=== PATIENT | male | born 1985 | race Caucasian/White ===

== ENCOUNTER 2022-02-21 11:51 | Emergency (ER) | payer SELFPAY ==
[2022-02-21 11:54] VITALS: BP 128/97; PULSE 76; RESP 16; TEMP 37.1; O2SAT 100
--- NOTE | 2022-02-21 12:08 | ED.WOUNDLAC ---
HPI - Wound/Laceration General Chief Complaint: Wound/Laceration Stated Complaint: finger laceration Time Seen by Provider: 02/21/22 12:04 History of Present Illness HPI narrative: Patient is a 26-year-old male who presents ER with laceration to his right fifth digit. It is over the proximal third of the finger ulnar aspect. He was using a mandolin to cut carrots with cut his finger. It occurred approximately 1.5 hours ago. His tetanus is not up-to-date. No numbness or tingling. No limitation range of motion. Related Data Home Medications Medication Instructions Recorded Confirmed No Home Medications 02/21/22 02/21/22 Allergies Allergy/AdvReac Type Severity Reaction Status Date / Time amoxicillin Allergy Unknown Rash Verified 02/21/22 12:02 clavulanic acid Allergy Unknown Rash Verified 02/21/22 12:02 diphenhydramine Allergy Unknown Rash Verified 02/21/22 12:02 Review of Systems Musculoskeletal: Musculoskeletal: Denies arthralgias and Denies joint swelling Integumentary/Breasts: Skin/Breast: Denies erythema and Denies rash Comments: Finger laceration/avulsion Neurologic: Denies focal weakness and Denies numbness PMFSH Past Medical History Medical History (Updated 02/21/22 @ 12:42 by Tavo Sebastian MD) Pneumothorax Surgical History Surgical History (Updated 02/21/22 @ 12:13 by Tavo Sebastian MD) S/P partial lobectomy of lung Social History Social History Smoking status: Former smoker Second hand tobacco smoke exposure: No Smoking end date: 03/31/11 Alcohol intake: never Exam Narrative: GENERAL: Well-appearing, well-nourished, and in no acute distress. HEAD: Normocephalic, atraumatic. CHEST: Clear to auscultation. No respiratory distress. HEART: Regular rate and rhythm. Normal peripheral pulses. EXTREMITIES: Normal range of motion. No edema. SKIN: Warm, dry. Right fifth digit with laceration over the proximal third of the finger ulnar aspect that is approximately 2.4 cm in total length. It is a flap that has a stalk. NEURO: Alert and oriented x3. The stalk of the flap has decreased sharp touch sensation but the rest of the finger has intact sensation. PSYCH: Normal mood and affect. Course Course Emergency Course: Tetanus updated. Wound repaired. Discharge home. Vital Signs Vital signs: Vital Signs Temperature 98.8 F 02/21/22 11:54 Pulse Rate 76 02/21/22 11:54 Respiratory Rate 16 02/21/22 11:54 Blood Pressure 128/97 H 02/21/22 11:54 Pulse Oximetry 100 02/21/22 11:54 Oxygen Delivery Room Air 02/21/22 11:54 Temperature 98.8 F 02/21/22 11:54 Pulse Rate 76 02/21/22 11:54 Respiratory Rate 16 02/21/22 11:54 Blood Pressure 128/97 H 02/21/22 11:54 Pulse Oximetry 100 02/21/22 11:54 Oxygen Delivery Room Air 02/21/22 11:54 Procedures Laceration Laceration 1: Date: 02/21/22 Time: 12:50 Site: other (finger) Side (If applicable): right Size (cm): 2.4 Description: flap and clean Depth: simple, single layer Local Anesthetic: lidocaine 1% Amount of anesthesia used (mL): 1.5 Pre-repair: irrigated extensively ====== Skin Level ====== Skin layer closed with: nylon Size (cm): 5-0 Number of sutures: 5 Technique: simple, interrupted ====== Subcutaneous Layer ====== ====== Muscle Layer ====== ====== Tendon Layer ====== Discharge Plan Discharge Clinical Impression: Finger laceration Patient Disposition: Home, Self-Care Condition: Stable Instructions: Care For Your Stitches (ED), Laceration (ED) Additional Instructions: Your sutures will need to be removed on 03/07/2022. Return to the ER if your finger is red and hot, the wound is draining pus, you have additional concerns. Your tetanus shot was updated today. Prescriptions: No Action No Home Medications Follow-up/Referrals: Tevin
[2022-02-21] MEDS: TETANUS,DIPHTHERIA,AC PERTUSSIS ADULT (0.5 ML) BOOSTRIX IM (12:33)
== END 2022-02-21 13:13 | disposition home or self-care (01) ==
PROVIDERS: Emergency Provider Emergency Medicine
DX: S61.216A Laceration without foreign body of right little finger without damage to nail, initial encounter (principal); Z23 Encounter for immunization; Z90.2 Acquired absence of lung [part of]; Z87.891 Personal history of nicotine dependence; Y93.G1 Activity, food preparation and clean up; W27.4XXA Contact with kitchen utensil, initial encounter
CPT/HCPCS: 12001; 90471; 90715; 99282

== ENCOUNTER 2023-10-17 09:24 | Emergency (ER) | payer OTHER, SELFPAY ==
--- NOTE | ~2023-10-17 | CT_ITS ---
CT of the Abdomen and Pelvis: Indication: Abdominal pain Technique: 2.5 mm axial scans were obtained through the abdomen and pelvis following intravenous adm inistration of 100 cc of Omnipaque 350. Dose reduction technique was used on this scan by utilizing a utomated exposure control and iterative reconstruction technique. The dose-length product (DLP) was 5 93.55 mGy-cm. Findings: Scans through the lung bases are unremarkable. The liver, spleen, pancreas, gallbladder, adrenals and kidneys are within normal limits. No evidence of aortic aneurysm. No lymphadenopathy. No bowel obstruction or bowel wall thickening. There is no evidence to suggest acute appendicitis. Th ere is minimal haziness in the central mesentery with shotty lymph nodes. Images through the pelvis were performed. Urinary bladder unremarkable. No pelvic mass seen. No ascit es. Impression: Mild mesenteric panniculitis. Reviewed, dictated and finalized at [facility]. Impression: Mild mesenteric panniculitis.
[2023-10-17 09:33] VITALS: BP 147/95; PULSE 90; RESP 19; TEMP 36.4; O2SAT 100
[2023-10-17 10:19] LABS: Basophils Absolute Auto 0.1 K/mm3 (0.0-0.1); Basophils Percent Auto 1.2 % (0.2-1.2); Eosinophils Percent Auto 16.9 % (0-4.4); Hematocrit 50.6 % (42.0-52.0); Hemoglobin 17.7 g/dL (14.0-18.0); Immature Granulocyte Absolute 0.06 K/mm3 (0.00-0.031); Immature Granulocyte Percent A 0.5 % (0-0.5); Lymphocytes Absolute Auto 2.31 K/mm3 (0.9-3.2); Lymphocytes Percent Auto 19.6 % (18.3-44.2); Mean Corpuscular Hemoglobin 31.8 pg (26-34); Mean Platelet Volume 11.2 fl (7.4-10.4); Monocytes Absolute Auto 0.7 K/mm3 (0.1-0.6); Monocytes Percent Auto 6.2 % (2.6-8.5); Neutrophils Absolute Auto 6.6 K/mm3 (1.3-6.7); Neutrophils Percent Auto 55.6 % (45.5-73.1); Platelet Count Result 202 k/mm3 (150-375); Red Blood Count 5.56 M/mm3 (4.6-6.20); Red Cell Distribution Width 12.4 % (11.5-14.5); White Blood Count 11.8 K/mm3 (4.5-10.0)
--- NOTE | 2023-10-17 10:20 | ED.GENADULT ---
HPI - General Adult General Chief complaint: Abdominal Pain Stated complaint: abdominal pain Time Seen by Provider: 10/17/23 09:55 History of Present Illness HPI narrative: 38-year-old male medical problems presents to the emergency room for evaluation of right-sided abdominal pain and diarrhea for 2 weeks. Patient states prior to him having diarrhea, he said he ate a half a check and that was not thoroughly. Reports 4-5 episodes of liquid stool daily. Denies any known blood in the stool. Denies any nausea vomiting. Denies fevers. States has taken Pepto-Bismol couple of occasions with no improvement of the symptoms. Related Data Allergies Allergy/AdvReac Type Severity Reaction Status Date / Time amoxicillin Allergy Unknown Rash Verified 10/17/23 09:46 clavulanic acid Allergy Unknown Rash Verified 10/17/23 09:46 diphenhydramine Allergy Unknown Rash Verified 10/17/23 09:46 Review of Systems Review of Systems: ROS unremarkable except for noted in HPI PMFSH Past Medical History Medical History Pneumothorax Surgical History Surgical History S/P partial lobectomy of lung Social History Social History Smoking status: Former smoker Second hand tobacco smoke exposure: No Smoking end date: 03/31/11 Alcohol intake: never Exam Narrative: GENERAL: Well-appearing, well-nourished, no physical limitations, and in no acute distress. HEAD: Normocephalic, atraumatic. EYES: Conjunctivae normal, PERRLA and EOMI. CHEST: Clear to auscultation. No respiratory distress. No wheezes rales or rhonchi. HEART: Regular rate and rhythm. No murmur heard. Normal peripheral pulses. ABDOMEN: Soft, right-sided tenderness, nondistended, normal active bowel sounds. BACK: No CVA tenderness EXTREMITIES: Normal range of motion. No edema. No clubbing or cyanosis SKIN: Warm, dry, no rash. No noted wounds NEURO: No focal deficits. Alert and oriented x3. MAEW. CN's II-XI intact bilaterally, normal gait PSYCH: Cooperative. Normal mood and affect. Course Vital Signs Vital signs: Vital Signs Temperature 36.4 C L 10/17/23 09:33 Pulse Rate 90 10/17/23 09:33 Respiratory Rate 19 10/17/23 09:33 Blood Pressure 147/95 H 10/17/23 09:33 Pulse Oximetry 100 10/17/23 09:33 Oxygen Delivery Room Air 10/17/23 09:33 Temperature 36.4 C L 10/17/23 09:33 Pulse Rate 88 10/17/23 10:32 Respiratory Rate 17 10/17/23 10:32 Blood Pressure 126/86 10/17/23 10:32 Pulse Oximetry 97 10/17/23 10:32 Oxygen Delivery Room Air 10/17/23 09:33 Medical Decision Making MDM Narrative Medical decision making narrative: 38-year-old male no medical problems presenting with the multiple episodes of liquid diarrhea for 2 weeks. Denies fevers, abdominal pain. Patient is nontoxic on exam. Lab work is largely unremarkable CT scan showed evidence of panniculitis. Consult with Dr. Juárez, he recommends obtaining stool cultures and treating based on results. Vital Signs Vital Signs: Vital Signs Temperature 36.4 C L 10/17/23 09:33 Pulse Rate 90 10/17/23 09:33 Respiratory Rate 19 10/17/23 09:33 Blood Pressure 147/95 H 10/17/23 09:33 Pulse Oximetry 100 10/17/23 09:33 Oxygen Delivery Room Air 10/17/23 09:33 Temperature 36.4 C L 10/17/23 09:33 Pulse Rate 88 10/17/23 10:32 Respiratory Rate 17 10/17/23 10:32 Blood Pressure 126/86 10/17/23 10:32 Pulse Oximetry 97 10/17/23 10:32 Oxygen Delivery Room Air 10/17/23 09:33 Lab Data 10/17/23 10:05 10/17/23 10:05 Labs: Lab Results 10/17/23 Range/Units 10:05 WBC 11.8 H (4.5-10.0) K/mm3 RBC 5.56 (4.6-6.20) M/mm3 Hgb 17.7 (14.0-18.0) g/dL Hct 50.6 (42.0-52.0) % MCV 91.0 (80-100) fl MCH 31.8 (26-34) pg MCHC 35.0
[2023-10-17 10:27] LABS: Alanine Aminotransferase 23 U/L (6-50); Albumin Level 4.6 g/dL (3.5-5.1); Alkaline Phosphatase 86 U/L (38-126); Anion Gap 9 mmol/L (4-12); Appearance Urine Clear (Clear); Aspartate Amino Transferase 20 U/L (17-59); Bilirubin Urine Negative (Negative); Blood Urea Nitrogen 14 mg/dL (9-20); Blood Urine Negative (Negative); Calcium 9.3 mg/dL (8.4-10.2); Carbon Dioxide 28 mmol/L (22-30); Chloride 100 mmol/L (98-107); Color Urine Yellow (Yellow); Estimated CRCL calculation 83 ml/min; Estimated Glomerular Filt Rate > 60; Glucose 168 mg/dL (65-110); Glucose Urine UA 1+ mg/dL (Negative); Ketones Urine Negative (Negative); Leukocyte Esterase Ur Negative LEU/UL (Negative); Lipase 143 U/L (23-300); Nitrate Urine Negative (Negative); Protein Urine Negative (Negative); Sodium 137 mmol/L (137-145)
[2023-10-17] MEDS: SODIUM CHLORIDE 0.9% IV 1,000 ML 999 ML IV CONT (10:27)
[2023-10-17 10:32] VITALS: BP 126/86; PULSE 88; RESP 17; O2SAT 97
[2023-10-17 10:48] LABS: Add Urine Microscopic? NO
[2023-10-17 12:22] VITALS: BP 132/87; PULSE 84; RESP 15; O2SAT 99
== END 2023-10-17 12:28 | disposition home or self-care (01) ==
PROVIDERS: Student in an Organized Health Care Education/Training Program; Emergency Provider Nurse Practitioner Family
DX: K65.4 Sclerosing mesenteritis (principal); Z87.891 Personal history of nicotine dependence; Z90.2 Acquired absence of lung [part of]
CPT/HCPCS: 36415; 74177; 80053; 81003; 83690; 85025; 96360; 99284; J7030; Q9967

== ENCOUNTER 2023-10-18 07:42 | Outpatient (CLI) | payer OTHER, SELFPAY ==
[2023-10-18 10:30] LABS: Toxigenic C. Diff NEGATIVE (NEGATIVE)
== END 2023-10-18 07:43 | disposition home or self-care (01) ==
PROVIDERS: Visit Provider Nurse Practitioner Family
DX: R19.7 Diarrhea, unspecified (principal)
CPT/HCPCS: 87045; 87177; 87209; 87427; 87449; 87493

== ENCOUNTER 2024-04-03 05:24 | Emergency (ER) | payer OTHER, SELFPAY ==
[2024-04-03 05:26] VITALS: BP 145/92; PULSE 106; RESP 16; TEMP 36.9; O2SAT 98
--- NOTE | 2024-04-03 05:30 | ECG_ITS ---
Test Date: 2024-04-03 05:40:00 Measurements Intervals [place] Rate: 114 P: 65 [place]: 134 QRS: 89 QRSD: 96 T: 56 QT: 326 QTc: 449 Interpretive Statements SINUS TACHYCARDIA POSSIBLE LEFT ATRIAL ENLARGEMENT [-0.1mV P WAVE IN V1/V2] No previous ECG available for comparison Electronically Signed On 04-06-2024 17:55:31 SPORTS PHOTOGRAPHER by Lisa Aguilar M.D.
--- OUTSIDE RECORDS SUMMARY | 2024-04-10 05:46 | XMS_ITS | Encounter Summary ---
Author Organization [facility] Address [address] [place] [address] Care Team Providers Care Tone Cabinet Assembler Name Role Phone Unavailable Primary Care Provider Unavailabl e Encounter Details Date Type Department Care Team (Late st Contact Info) Description 03/02/2020 3:00 PM VEST FINISHER Rapid Evaluation [place] [facility] Community Testing [address] [id number] Social History Tobacco Use Types Packs/Day Years Used Date Smoking Tobacco: Never Assessed Sex and Gender Information Value Date Recorded Sex Assigned at Not on file Legal Sex Male 2:38 PM VEST FINISHER Gender Identity Not on file Sexual Orientation Not on file documented as of this encounter Plan of Treatment Not on file documented as of this encounter Visit Diagnoses Not on filedocumented in this encounter
--- OUTSIDE RECORDS SUMMARY | 2024-04-10 05:46 | XMS_ITS | Clinical Summary ---
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 TEST CLERK Gender Identity Not on file Sexual Orientation Not on file Plan of Treatment Health Maintenance Due Date Last Done Comments Hepatitis C Virus (HCV) Screening 1986 TdaP Immunization 1986 Hepatitis B Immunization (1 of 3 - 19+ 3-dose series) 2005 Influenza Immunization (#1) 2023 SARS-COV-2 Immunization ( - 2023- season) 2023 Respiratory Syncytial Virus (RSV) Immunization (Adult) (1 - 1-dose 75+ series) 2061 Meningococcal Immunization (ACWY) Aged Out No longer eligible based on patient's age to complete this topic Pneumococcal Immunization Combined Aged Out No longer eligible based on patient's age to complete this topic Rotavirus Immunization Aged Out No lo nger eligible based on patient's age to complete this topic
--- OUTSIDE RECORDS SUMMARY | 2024-04-10 05:46 | XMS_ITS | Referral Summary ---
Author Organization [facility] Address [facility] [place] [address] Care Team Providers Care Bioinformatics Developer Name Role Phone Trevin Smith MD Primary Care Provider [phone] Source Comments [facility],non-owned Affiliates and Associated Physician Practices is amultiple site organization consisting of ambulatory clinics and hospital sitesin [place], [place], [place] and [place]. This disclosure is being madepursuant to the Care Everywhere program and may not contain all information available regarding this patient. Last updated 17.[facility] Allergies Active Allergy Reactions Criticality Noted Date Comments Augmentin Urticaria Medium 06/15/2017 Medications Be aware that medications may not be up to date on this document. Always verify current medications with the patient. No known medications Social History Tobacco Use Types Packs/Day Years Used Date Smoking Tobacco: Former Cigarettes Q uit: 2012 Smokeless Tobacco: Never Sex and Gender Information Value Date Recorded Sex Assigned at Not on file Gender Identity Not on file Sexual Orientation Not on file Last Filed Vital Signs Vital Sign Reading Time Taken Comments Blood Pressure 120/84 06/15/2017 2:26 PM CDT Pulse 79 06/15/2017 2:26 PM CDT Temperature 36.7 ??C (98.1 ??F) 06/15/2017 2:26 PM CD T Respiratory Rate 16 06/15/2017 2:26 PM CDT Oxygen Saturation 98% 06/15/2017 2:26 PM CDT Inhaled Oxygen Concentration - - Weight 83.9 kg (185 lb) 06/15/2017 2:26 PM CDT Height 182.9 cm (6') 06/15/2017 2:26 PM CDT Body Mass Index 25.09 06/15/2017 2:26 PM CDT Plan of Treatment Not on file Care Teams Bioinformatics Developer Relationship Specialty Start Date End Date Trevin Smith MD [address] [place] [address] PCP - General Family Medicine 06/15/17
--- OUTSIDE RECORDS SUMMARY | 2024-04-10 05:46 | XMS_ITS | Clinical Summary ---
Author Organization [facility] Address [facility] [facility] [place] [address] Care Team Providers Care Hydraulic Technician Name Role Phone Trevin Smith MD Primary Care Provider [phone] Source Comments [facility],non-owned Affiliates and Associated Physician Practices is amultiple site organization consisting of ambulatory clinics and hospital sitesin [place], [place], [place] and [place]. This disclosure is being madepursuant to the Care Everywhere program and may not contain all information available regarding this patient. Last updated 17.[facility] Allergies Active Allergy Reactions Criticality Noted Date [...] 06/15/2017 2:26 PM CDT Plan of Treatment Health Maintenance Due Date Last Done Comments HIV SCREENING 2001 HEPATITIS C SCREENING 05/23/2004 DTAP/TDAP/TD VACCINES (1 - Tdap) 2005 HEPATITIS B VACCINE (1 of 3 - 19+ 3-dose series) 2005 DEPRESSION SCREENING 03/31/2023 COVID-19 VACCINE (1 - 2023-2 5 season) 2023 INFLUENZA VACCINE (#1) 2023 ZOSTER VACCINE (1 of 2) 2036 HIB VACCINE Aged Out No longer eligi ble based on patient's age to complete this topic HPV VACCINE Aged Out No longer eligi ble based on patient's age to complete this topic MENINGOCOCCAL VACCINE Aged Out No bell geraldo eligible based on patient's age to complete this topic PNEUMOCOCCAL VACCINE Aged Out No long er eligible based on patient's age to complete this topic Care Teams Hydraulic Technician Relationship Specialty Start Date End Date Trevin Smith MD [address] [place] [address] PCP - General Family Medicine 06/15/17
--- OUTSIDE RECORDS SUMMARY | 2024-04-10 05:46 | XMS_ITS | Encounter Summary ---
Author Organization [facility] Address [address] [place] [address] Care Team Providers Care Production Manufacturing Worker Name Role Phone Unavailable Primary Care Provider Unavailabl e Encounter Details Date Type Department Care Team (Late st Contact Info) Description 03/02/2020 Lab Requisition [facility] Community Testing [facility] [address] [place] [address] Miles, [place] [address] [place] [address] Social History Tobacco Use Types Packs/Day Years Used Date Smoking Tobacco: Never Assessed Sex and Gender Information Value Date Recorded Sex Assigned at Not on file Legal 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
--- OUTSIDE RECORDS SUMMARY | 2024-04-10 05:46 | XMS_ITS | Encounter Summary ---
Author Organization [facility] Address [address] [place] [address] Phone Care Team Providers Care Middleware Systems Architect Name Role Phone Starr Desouza MD Primary Care Provider Encounter Details Date Type Department Care Team (Late st Contact Info) Description 09/08/2018 Telephone [facility] Nephrology and Hypertension [address] [place] [address], [address] [employer], [place] [id number] Lydia Massey MD [address] [facility], [address] [place] [address] Social History Tobacco Use Types Packs/Day Years Used Date Smoking Tobacco: Never Assessed Sex and Gender Information Value Date Recorded Sex Assigned at Not on file Gender Identity Not on file Sexual Orientation Not on file documented as of this encounter Miscellaneous Notes * Telephone Encounter - Anaya Brooks - 09/08/2018 10:11 AM CDT I left a message with the nurse in Dr. Desouza's office and am waiting to hear back from her. * Telephone Encounter - Lydia Massey MD - 09/08/2018 6:46 AM CDT Can u call PCP's office regarding patient appointment tomorrow -- I want to make sure I address theissue they are concerned about as I was not sure what it is reviewing his labs...Thanks. documented in this encounter Plan of Treatment Not on file documented as of this encounter Visit Diagnoses Not on filedocumented in this encounter Care Teams Middleware Systems Architect Relationship Specialty Start Date End Date Starr Desouza MD [address] [place] [address] PCP - General Internal Medicine 08/13/18 documented as of this encounter
--- OUTSIDE RECORDS SUMMARY | 2024-04-10 05:46 | XMS_ITS | Clinical Summary ---
Author Organization [facility] Address [address] [place] [address] Phone Care Team Providers Care Rotor Casting Machine Operator Name Role Phone Starr Desouza MD Primary Care Provider Social History Tobacco Use Types Packs/Day Years Used Date Smoking Tobacco: Never Assessed Sex and Gender Information Value Date Recorded Sex Assigned at Not on file Gender Identity Not on file Sexual Orientation Not on file Plan of Treatment Health Maintenance Due Date Last Done Comments Influenza Vaccine (#1) 2023 Care Teams Rotor Casting Machine Operator Relationship Specialty Start Date End Date Starr Desouza MD [address] [place] [address] PCP - General Internal Medicine 08/13/18
--- OUTSIDE RECORDS SUMMARY | 2024-04-10 05:46 | XMS_ITS | Encounter Summary ---
Author Organization [facility] Address [address] [place] [address] Phone Care Team Providers Care Check Grader Name Role Phone Starr Desouza MD Primary Care Provider Encounter Details Date Type Department Care Team (Late st Contact Info) Description 09/07/2018 Telephone [facility] Nephrology and Hypertension [address] [place] [address], [address] [place], [place] [id number] Lydia Massey MD [address] [facility], [address] [place] [address] Social History Tobacco Use Types Packs/Day Years Used Date Smoking Tobacco: Never Assessed Sex and Gender Information Value Date Recorded Sex Assigned at Not on file Gender Identity Not on file Sexual Orientation Not on file documented as of this encounter Miscellaneous Notes * Telephone Encounter - Anaya Brooks - 09/07/2018 11:53 AM CDT Their office is closed for lunch, but I faxed a request for recent labs for Dr. Desouza's office. J * Telephone Encounter - Lydia Massey MD - 09/07/2018 10:57 AM CDT Can you request any recent labs results as nothing was attached to chart. J * Telephone Encounter - Anaya Brooks - 09/07/2018 9:02 AM CDT I confirmed with Dr. Desouza's office that the patient needs to see a refrigerating oiler and not a urologist. * Telephone Encounter - Lydia Massey MD - 09/07/2018 1:56 AM CDT Can you clarify with patient and/or PCP's office -- does he need to see UROLOGY or NEPHROLOGY??? --referral paperwork says Urology..... Thanks. documented in this encounter Plan of Treatment Not on file documented as of this encounter Visit Diagnoses Not on filedocumented in this encounter Care Teams Check Grader Relationship Specialty Start Date End Date Starr Desouza MD [address] [place] [address] PCP - General Internal Medicine 08/13/18 documented as of this encounter
--- OUTSIDE RECORDS SUMMARY | 2024-04-10 05:46 | XMS_ITS | Encounter Summary ---
Author Organization [facility] Address [address] [place] [address] [place] [address] Care Team Providers Care Pattern Stamper Name Role Phone Trevin Smith MD Primary Care Provider [phone] Reason for Visit * Reason Comments Sore Throat Encounter Details Date Type Department Care Team (Late st Contact Info) Description 06/15/2017 2:20 PM CDT Office Visit [facility] [address] [place] [address] [facility], [facility] [address] Acute pharyngitis, unspecified etiology (Primary Dx) Social History Tobacco Use Types Packs/Day Years Used Date Smoking Tobacco: Former Cigarettes Q uit: 2013 Smokeless Tobacco: Never Sex and Gender Information Value Date Recorded Sex Assigned at Not on file Gender Identity Not on file Sexual Orientation Not on file documented as of this encounter Last Filed Vital Signs Vital Sign Reading [...] Mass Index 25.09 06/15/2017 2:26 PM CDT documented in this encounter Patient Instructions * Patient Instructions* Nyla Lombardi, ECONOMIC ANALYST-SINGEING TORCH OPERATOR - 06/15/2017 2:37 PM CDT Pharyngitis BANK VAULT CUSTODIAN: Pharyngitis , or sore throat, is inflammation of the tissues and structures in your pharynx (throat). Pharyngitis is most often caused by bacteria. It may also be caused by a cold or flu virus. Othercauses include smoking, allergies, or acid reflux. Signs and symptoms that may occur with pharyngitis: ?? Sore throat or pain when you swallow ?? Fever, chills, and body aches ?? Hoarse or raspy voice ?? Cough, runny or stuffy nose, itchy or watery eyes ?? Headache ?? Upset stomach and loss of appetite ?? Mild neck stiffness ?? Swollen glands that feel like hard lumps when you touch your neck ?? White and yellow pus-filled blisters in the back of your throat Call 911 for any of the following: ?? You have trouble breathing or swallowing because your throat is swollen or sore. Seek care immediately if: ?? You are drooling because it hurts too much to swallow. ?? Your fever is higher than 102?F (39?C) or lasts longer than 3 days. ?? You are confused. ?? You taste blood in your throat. Contact your healthcare provider if: ?? Your throat pain gets worse. ?? You have a painful lump in your throat that does not go away after 5 days. ?? Your symptoms do not improve after 5 days. ?? You have questions or concerns about your condition or care. Treatment for pharyngitis: Viral pharyngitis will go away on its own without treatment. Your sore throat should start to feel better in 3 to 5 days for both viral and bacterial infections. You may need any of the following: ?? Antibiotics treat a bacterial infection. ?? NSAIDs , such as ibuprofen, help decrease swelling, pain, and fever. NSAIDs can cause stomach bleeding or kidney problems in certain people. If you take blood thinner medicine, always ask your healthcare provider if NSAIDs are safe for you. Always read the medicine label and follow directions. ?? Acetaminophen decreases pain and fever. It is available without a doctor's order. Ask how much to take and how often to take it. Follow directions. Acetaminophen can cause liver damage if not taken correctly. Manage your symptoms: ?? Gargle salt water. Mix ?? teaspoon salt in an 8 ounce glass of warm water and gargle. This may help decrease swelling in your throat. ?? Drink liquids as directed. You may need to drink more liquids than usual. Liquids may help soothe your throat and prevent dehydration. Ask how much liquid to drink each day and which liquids are best for you. ?? Use a cool-steam humidifier to help moisten the air in your room and calm your cough. ?? Soothe your throat with cough drops, ice, soft foods, or popsicles. Prevent the spread of pharyngitis: Cover your mouth and nose when you cough or sneeze. Do not sharefood or drinks. Wash your hands often. Use soap and water. If soap and water are unavailable, use an alcohol based hand red leader. Follow up with your healthcare provider as directed: Write down your questions so you remember to ask them during your visits. ?? 2017 [employer] Information is for End User's use only and may not be sold, redistributed or otherwise used for commercial purposes. All illustrations and images included in CareNotes?? are the copyrighted property of [employer]. or [employer]. The above information is an educational program assistant only. It is not intended as medical advice for individual conditions or treatments. Talk to your doctor, nurse or pharmacist before following any medical regimen to see if it is safe and effective for you. documented in this encounter Progress Notes * Nyla Lombardi APRN-CNP - 06/15/2017 2:28 PM CDT History Willis Rosales is a 32 y.o. male who presents to the clinic with Chief Complaint Patient presents with ??? Sore Throat . Primary Care Physician is Trevin Smith MD. He reports the following symptoms: sinus and nasal congestion, sore throat, post nasal drip, headache, fever and pain while swallowing. Onset was 2 days ago. The Clinical course has been gradually worsening. Patient is drinking plenty of fluids. Positive for sick contacts. OTC- Ibuprofen for pain with relief. Past Medical History: Diagnosis Date ??? NEGATIVE PAST MEDICAL HISTORY - SEE PROBLEM LIST No family history on file. No current outpatient prescriptions on file. No current facility-administered medications for this visit. Allergies Allergen Reactions ??? Augmentin Urticaria Social History Social History ??? Marital status: Single Social History Main Topics ??? Smoking status: Former Smoker Quit date: 2012 ??? Smokeless tobacco: Never Used Review of Systems Constitutional: Positive for fatigue, Negative for fevers, chills. Eyes: Negative Ears, nose, mouth, and throat: Positive for persistent sore throat, congestion Respiratory: Negative Cardiovascular: Negative Objective: BP 120/84 Pulse 79 Temp 98.1 ??F Resp 16 Ht 1.829 m (6') Wt 83.9 kg (185 lb) SpO2 98% BMI 25.09 kg/m2 General appearance: alert, cooperative, no distress, oriented to person, place, and time Head: normocephalic, without trauma Eyes: sclera and conjunctiva clear Ears: canals clear, tympanic membranes normal, hearing intact to voice Nose: nares open Throat: mild oropharyngeal erythema, tonsillar hypertrophy 2+ Neck: supple Nodes: no cervical adenopathy Lungs: breath sounds normal and symmetric; no rales or wheezes Heart: regular rhythm, normal S1 and S2, without murmurs, gallops or rubs Assessment: Encounter Diagnosis Name Primary? Acute pharyngitis, unspecified etiology Yes Plan: . Educational materials given. Drink plenty of fluids May take Tylenol or Ibuprofen as directed per package instructions Warm salt water gargles Humidifier Reviewed education materials and instructions with patient and answered all questions. Willis Rosales verbalized understanding and agrees with plan. Follow up with Trevin Smith MD if symptoms worsen or do not completely resolve. SEEK EMERGENCY CARE IF SEVERE SYMPTOMS, SUCH HIGH FEVER, DIFFICULTY SWALLOWING SALIVA, DROOLING,NECK PAIN OR SWELLING, MENTAL STATUS CHANGES, OR SEVERE HEADACHE OCCUR. Orders Placed This Encounter ??? STREP A SCREEN Recent Results (from the past 24 hour(s)) STREP A SCREEN Collection Time: 06/15/17 12:00 AM Result Value Ref Range Strep A Rapid Negative Negative Strep A INTERNAL CONTROL Present Lot Number [id number] Expiration Date 12/19/18 Nyla Lombardi APRN, ELIZABETH-ANTONELLA 06/15/2017 2:38 PM documented in this encounter Plan of Treatment Not on file documented as of this encounter Procedures Procedure Name Priority Date/Time Associated Diagnosis Comments STREP A SCREEN - POINT OF CARE (AMB) STL Routine 06/15/2017 Acute pharyngitis, unspecified etiology documented in this encounter Results * STREP A SCREEN (06/15/2017) Strep A Rapid POCT Negative Negative Strep A Internal Control Present Lot # [id number] Expiration Date 12/19/18 Throat ENTIRE THROAT (SURFACE REGION OF NECK) / Unknown 06/15/2017 Nyla Lombardi APRN-[facility] - POINT OF CA RE ORDERABLES documented in this encounter Visit Diagnoses Diagnosis Acute pharyngitis, unspecified etiology- Primary documented in this encounter Care Teams Pattern Stamper Relationship Specialty Start Date End Date Trevin Smith MD [address] [place] [address] PCP - General Family Medicine 06/15/17 documented as of this encounter
--- OUTSIDE RECORDS SUMMARY | 2024-04-10 05:46 | XMS_ITS | Encounter Summary ---
Author Organization [facility] Address [facility] [place] [address] Care Team Providers Care Technology Recruiter Name Role Phone Trevin Smith MD Primary Care Provider [phone] Reason for Visit * Reason Onset Date Comments Follow-up 06/17/2017 Encounter Details Date Type Department Care Team (Late st Contact Info) Description 06/17/2017 Telephone [facility] [facility] AT [address] [address] Carmela Moore Follow-up Social History Tobacco Use Types Packs/Day Years [...] on filedocumented in this encounter Care Teams Technology Recruiter Relationship Specialty Start Date End Date Trevin Smith MD [address] [place] [address] PCP - General Family Medicine 06/15/17 documented as of this encounter
--- OUTSIDE RECORDS SUMMARY | 2024-04-10 05:46 | XMS_ITS | Patient Health Summary ---
Author Organization [facility] Address [facility] [place] [address] Care Team Providers Care Coding Manager Name Role Phone Trevin Smith MD Primary Care Provider [phone] Note from [facility],non-owned Affiliates and Associated Physician Practices is amultiple site organization consisting of ambulatory clinics and hospital sitesin [place], [place], [place] and [place]. This disclosure is being madepursuant to the Care Everywhere program and may not contain all information available regarding this patient. Last updated 17.[facility] Allergies * Augmentin(Urticaria) -Medium Criticality Medications Be aware that medications may not [...] Mass Index 25.09 06/15/2017 2:26 PM CDT Procedures * STREP A SCREEN - POINT OF CARE (AMB) STL(Performed 06/15/2017) Performed for Acute pharyngitis, unspecified etiology Results * STREP A SCREEN (06/15/2017) Strep A Rapid POCT Negative Negative Strep A Internal Control Present Lot # [id number] Expiration Date 12/19/18 Throat ENTIRE THROAT (SURFACE REGION OF NECK) / Unknown 06/15/2017 Nyla Lombardi WAREHOUSE PULLER-CHILDREN'S NURSERY ASSISTANT LAB - POINT OF CA RE ORDERABLES Care Teams Coding Manager Relationship Specialty Start Date End Date Trevin Smith MD [address] [place], [place] [id number] PCP - General Family Medicine 06/15/17
--- OUTSIDE RECORDS SUMMARY | 2024-04-10 06:22 | XMS_ITS | Referral Summary ---
Author Organization [facility] [employer] Address [facility] [place] [address] Care Team Providers Care Orchid Superintendent Name Role Phone Trevin Smith MD Primary Care Provider [phone] Source Comments [facility] [employer],non-owned Affiliates and Associated Physician Practices is amultiple site organization consisting of ambulatory clinics and hospital sitesin [place], [place], [place] and [place]. This disclosure is being madepursuant to the Care Everywhere program and may not contain all information available regarding this patient. Last updated 17.[facility] [employer] Allergies Active Allergy Reactions Criticality Noted Date [...] of Treatment Not on file Care Teams Orchid Superintendent Relationship Specialty Start Date End Date Trevin Smith MD [address] [place] [address] PCP - General Family Medicine 06/15/17
--- OUTSIDE RECORDS SUMMARY | 2024-04-10 06:22 | XMS_ITS | Encounter Summary ---
Author Organization [facility] Address [address] [place] [address] Care Team Providers Care First Aid Instructor Name Role Phone Unavailable Primary Care Provider Unavailabl e Encounter Details Date Type Department Care Team (Late st Contact Info) Description 03/02/2020 3:00 PM CRM ANALYST Rapid Evaluation [place] [facility] Community Testing [address] [id number] Social History Tobacco Use Types Packs/Day Years Used Date Smoking Tobacco: Never Assessed Sex and Gender Information Value Date Recorded Sex Assigned at Not on file Legal Sex Male 2:38 PM CRM ANALYST Gender Identity Not on file Sexual Orientation Not on file documented as of this encounter Plan of Treatment Not on file documented as of this encounter Visit Diagnoses Not on filedocumented in this encounter
--- OUTSIDE RECORDS SUMMARY | 2024-04-10 06:22 | XMS_ITS | Encounter Summary ---
Author Organization [facility] Address [address] [place] [address] Phone Care Team Providers Care Plant Attendant Or Assistant Operator Name Role Phone Starr Desouza MD Primary Care Provider Encounter Details Date Type Department Care Team (Late st Contact Info) Description 09/08/2018 Telephone [facility] Nephrology and Hypertension [address] [place] [address], [address] [place], [place] [id number] Lydia Massey MD [address] [facility], [address] [place] [address] Social History Tobacco Use Types Packs/Day Years [...] on filedocumented in this encounter Care Teams Plant Attendant Or Assistant Operator Relationship Specialty Start Date End Date Starr Desouza MD [address] [place] [address] PCP - General Internal Medicine 08/13/18 documented as of this encounter
--- OUTSIDE RECORDS SUMMARY | 2024-04-10 06:22 | XMS_ITS | Encounter Summary ---
Author Organization [facility] Address [address] [place] [address] Phone Care Team Providers Care Fiberglass Autobody Repairer Name Role Phone Starr Desouza MD Primary Care Provider Encounter Details Date Type Department Care Team (Late st Contact Info) Description 09/07/2018 Telephone [facility] Nephrology and Hypertension [address] [place] [address], [address] [place], [place] [phone] Lydia Massey MD [address] [facility], [address] [place] [address] Social History Tobacco Use Types Packs/Day Years [...] that the patient needs to see a senior grant writer and not a urologist. * Telephone Encounter - Lydia Massey MD - 09/07/2018 1:56 AM CDT Can you clarify with patient and/or PCP's office -- does he need to see UROLOGY or NEPHROLOGY??? --referral paperwork says Urology..... Thanks. documented in this encounter Plan of Treatment Not on file documented as of this encounter Visit Diagnoses Not on filedocumented in this encounter Care Teams Fiberglass Autobody Repairer Relationship Specialty Start Date End Date Starr Desouza MD [address] [place] [address] PCP - General Internal Medicine 08/13/18 documented as of this encounter
--- OUTSIDE RECORDS SUMMARY | 2024-04-10 06:22 | XMS_ITS | Encounter Summary ---
Author Organization [facility] Address [facility]3 [facility] [place] [address] Care Team Providers Care Plastic Press Molder Name Role Phone Trevin Smith MD Primary Care Provider [phone] Reason for Visit * Reason Onset Date Comments Follow-up 06/17/2017 Encounter Details Date Type Department Care Team (Late st Contact Info) Description 06/17/2017 Telephone [facility] [employer] [facility] AT [address] [address] Carmela Moore Follow-up Social History [...] on filedocumented in this encounter Care Teams Plastic Press Molder Relationship Specialty Start Date End Date Trevin Smith MD [address] [place] [address] PCP - General Family Medicine 06/15/17 documented as of this encounter
--- OUTSIDE RECORDS SUMMARY | 2024-04-10 06:22 | XMS_ITS | Encounter Summary ---
Author Organization [facility] Address [address] [place] [address] Care Team Providers Care Women'S Lacrosse Coach Name Role Phone Unavailable Primary Care Provider Unavailabl e Encounter Details Date Type Department Care Team (Late st Contact Info) Description 03/02/2020 Lab Requisition [facility] Community Testing [facility] [address] [place] [address] Miles, [place] [address] [place] [address] Social History Tobacco Use Types Packs/Day Years Used Date Smoking Tobacco: Never Assessed Sex and Gender Information Value Date Recorded Sex Assigned at Not on file Legal Sex Male 2:38 PM COMMERCIAL FIELD INSPECTOR Gender Identity Not on file Sexual Orientation Not on file documented as of this encounter Plan of Treatment Not on file documented as of this encounter Procedures Procedure Name Priority Date/Time Associated Diagnosis Comments SARS-COV-2 PCR [facility] ONLY Routine 03/02/2020 2:56 PM COMMERCIAL FIELD INSPECTOR documented in this encounter Visit Diagnoses Not on filedocumented in this encounter
--- OUTSIDE RECORDS SUMMARY | 2024-04-10 06:22 | XMS_ITS | Clinical Summary ---
Author Organization [facility] Address [address] [place] [address] Phone Care Team Providers Care Open Hearth Helper Name Role Phone Starr Desouza MD Primary Care Provider Social History Tobacco Use Types Packs/Day Years Used Date Smoking Tobacco: Never Assessed Sex and Gender Information Value Date Recorded Sex Assigned at Not on file Gender Identity Not on file Sexual Orientation Not on file Plan of Treatment Health Maintenance Due Date Last Done Comments Influenza Vaccine (#1) 2023 Care Teams Open Hearth Helper Relationship Specialty Start Date End Date Starr Desouza MD [address] [place] [address] PCP - General Internal Medicine 08/13/18
--- OUTSIDE RECORDS SUMMARY | 2024-04-10 06:22 | XMS_ITS | Clinical Summary ---
Author Organization [facility] Address [address] [place] [address] Care Team Providers Care Waiter/Waitress Room Service Name Role Phone Unavailable Primary Care Provider Unavailabl e Social History Tobacco Use Types Packs/Day Years Used Date Smoking Tobacco: Never Assessed Sex and Gender Information Value Date Recorded Sex Assigned at Not on file Legal Sex Male 2:38 PM FEATHER CUTTING MACHINE FEEDER Gender Identity Not on file Sexual Orientation [...]
--- OUTSIDE RECORDS SUMMARY | 2024-04-10 06:22 | XMS_ITS | Encounter Summary ---
Author Organization [facility] Address [address] [place] [address] [place] [address] Care Team Providers Care Sole Cutter Name Role Phone Trevin Smith MD Primary Care Provider [phone] Reason for Visit * Reason Comments Sore Throat Encounter Details Date Type Department Care Team (Late st Contact Info) Description 06/15/2017 2:20 PM CDT Office Visit [facility] [address] [place] [address] [facility] [address] Acute pharyngitis, unspecified etiology (Primary [...] Patient Instructions * Patient Instructions* Nyla Lombardi, SILVICULTURE PROFESSOR-INSURANCE JOB TITLES - 06/15/2017 2:37 PM CDT Pharyngitis AREA OPERATIONS DIRECTOR: Pharyngitis , or sore throat, is inflammation [...] are unavailable, use an alcohol based hand kiln tester. Follow up with your healthcare provider as directed: Write down your questions so you remember to ask them during your visits. ?? 2017 [employer] Information is for End User's use only and may not be sold, redistributed or otherwise used for commercial purposes. All illustrations and images included in CareNotes?? are the copyrighted property of [employer]. or [employer]. The above information is an food aide only. It is not intended as medical [...] Strep A INTERNAL CONTROL Present Lot Number [id number] Expiration Date 12/19/18 Nyla Lombardi APRN, ELIZABETH-ANTONELLA [...] Strep A Internal Control Present Lot # [id number] Expiration Date 12/19/18 Throat ENTIRE THROAT (SURFACE REGION OF NECK) / Unknown 06/15/2017 Nyla Lombardi APRN-[facility] - POINT OF CA RE ORDERABLES documented in this encounter Visit Diagnoses Diagnosis Acute pharyngitis, unspecified etiology- Primary documented in this encounter Care Teams Sole Cutter Relationship Specialty Start Date End Date Trevin Smith MD [address] [place] [address] PCP - General Family Medicine 06/15/17 documented as of this encounter
--- OUTSIDE RECORDS SUMMARY | 2024-04-10 06:22 | XMS_ITS | Patient Health Summary ---
Author Organization [facility] Address [facility]3 [facility] [place] [address] Care Team Providers Care Photovoltaic Testing Technician Name Role Phone Trevin Smith MD Primary Care Provider [phone] [facility],non-owned Affiliates and Associated Physician Practices is amultiple site organization consisting of ambulatory clinics and hospital sitesin [place], [place], [place] and [place]. This disclosure is being madepursuant to the Care Everywhere program and may not contain all information available regarding this patient. Last updated 17.[facility] Allergies * Augmentin(Urticaria) -Medium Criticality Medications Be [...] Strep A Internal Control Present Lot # [id number] Expiration Date 12/19/18 Throat ENTIRE THROAT (SURFACE REGION OF NECK) / Unknown 06/15/2017 Nyla Lombardi BARBER STYLIST-MAINTENANCE CONSTRUCTION HELPER LAB - POINT OF CA RE ORDERABLES Care Teams Photovoltaic Testing Technician Relationship Specialty Start Date End Date Trevin Smith MD [address] [place], [place] [id number] PCP - General Family Medicine 06/15/17
--- OUTSIDE RECORDS SUMMARY | 2024-04-10 06:22 | XMS_ITS | Clinical Summary ---
Author Organization [facility] Address [facility]3 [facility] [place] [address] Care Team Providers Care Fireworks Assembler Name Role Phone Trevin Smith MD Primary Care Provider [phone] [facility],non-owned Affiliates and Associated Physician Practices is amultiple site organization consisting of ambulatory clinics and hospital sitesin [place], [place], [place] and [place]. This disclosure is being madepursuant to the Care Everywhere program and may not contain all information available regarding this patient. Last updated 17.[facility] Allergies Active Allergy Reactions Criticality Noted Date [...] age to complete this topic Care Teams Fireworks Assembler Relationship Specialty Start Date End Date Trevin Smith MD [address] [place] [address] PCP - General Family Medicine 06/15/17
== END 2024-04-03 07:46 | disposition left against medical advice (07) ==
PROVIDERS: Emergency Provider Emergency Medicine
DX: R05.9 Cough, unspecified (principal)
CPT/HCPCS: 93005; 99199

== ENCOUNTER 2025-01-25 20:58 | Emergency (ER) | payer OTHER, SELFPAY ==
--- NOTE | ~2025-01-25 | CT_ITS ---
EXAMINATION: CTA neck DATE: 01/25/2025 22:48 INDICATION: Neck swelling. TECHNIQUE: Computed tomographic angiography (CTA) of the neck was performed with 100 mL Omnipaque-350 intravenous contrast. Automated exposure control and iterative reconstruction technique were employed. The dose-length product was 611.36 mGy-cm. Maximum intensity projection 3D-reconstructions were created by the technologist on a separate workstation. COMPARISON: None. FINDINGS: There are no pathologically enlarged lymph nodes. The vertebral arteries are codominant. There is no significant stenosis of the vertebral arteries. There is no visible plaque in the proximal internal carotid arteries. There is 0% stenosis of the proximal right internal carotid artery relative to normal distal artery lumen diameter (NASCET criteria). There is 0% stenosis of the proximal left internal carotid artery relative to normal distal artery lumen diameter. There is mild mucosal thickening in the paranasal sinuses. The mastoid air cells are normal. IMPRESSION: 1. 0% stenosis of the proximal internal carotid arteries relative to normal distal artery lumen diameters (NASCET criteria). Reviewed, dictated and finalized at location E. IMPRESSION: 1. 0% stenosis of the proximal internal carotid arteries relative to normal dis sam artery lumen diameters (NASCET criteria).
[2025-01-25 21:00] VITALS: BP 160/92; PULSE 81; RESP 18; TEMP 36.9; O2SAT 99
--- OUTSIDE RECORDS SUMMARY | 2025-01-25 21:00 | XMS_ITS | Clinical Summary ---
Author Organization [facility] Address [address] [place] [address] Phone Care Team Providers Care Transfer Car Operator Name Role Phone Starr Desouza MD Primary Care Provider Social History Tobacco Use Types Packs/Day Years Used Date Smoking Tobacco: Never Assessed Sex and Gender Information Value Date Recorded Sex Assigned at Not on file Legal Sex Male 1:51 PM MDT Gender Identity Not on file Sexual Orientation Not on file Plan of Treatment Health Maintenance Due Date Last Done Comments Influenza Vaccine (#1) 2024 Insurance [employer] Care Teams Transfer Car Operator Relationship Specialty Start Date End Date Starr Desouza MD [address] [place] [address] PCP - General Internal Medicine 08/13/18
--- OUTSIDE RECORDS SUMMARY | 2025-01-25 21:00 | XMS_ITS | Clinical Summary ---
Author Organization [facility] Address [facility] [facility] [place] [address] Care Team Providers Care Operations Superintendent Name Role Phone Trevin Smith MD Primary Care Provider [phone] Source Comments [facility],non-owned Affiliates and Associated Physician Practices is amultiple site organization consisting of ambulatory clinics and hospital sitesin [place], [place], [place] and [place]. This disclosure is being madepursuant to the Care Everywhere program and may not contain all information available regarding this patient. Last updated 17.[facility] Allergies Active Allergy Reactions Criticality Noted Date Comments Augmentin Urticaria Medium 06/15/2017 Medications * Be aware that medications may not be up to date on this document. Alwaysverify current medications with the patient. No known medications Social History Tobacco Use Types Packs/Day Years Used Date Smoking Tobacco: Former Cigarettes Q uit: 2012 Smokeless Tobacco: Never Sex and Gender Information Value Date Recorded Sex Assigned at Not on file Legal Sex Male 9:32 AM CDT Gender Identity Not on file Sexual Orientation Not on file Last Filed Vital Signs Vital Sign Reading Time Taken Comments Blood Pressure 120/84 06/15/2017 2:26 PM CDT Pulse 79 06/15/2017 2:26 PM CDT Temperature 36.7 C (98.1 F) 06/15/2017 2:26 PM CDT Respiratory Rate 16 06/15/2017 2:26 PM CDT [...] of 3 - 19+ 3-dose series) 2005 HPV VACCINE (1 - 3-dose SCDM series) 2013 DEPRESSION SCREENING 03/31/2024 COVID-19 VACCINE (1 - 2023-2 5 season) 2024 INFLUENZA VACCINE (#1) 2024 ZOSTER VACCINE (1 of 2) 2036 HIB VACCINE Aged Out No longer eligi ble based on patient's age to complete this topic MENINGOCOCCAL (Group B) VACC INE SHARED DECISION-MAKING Aged Out No longer eligibl e based on patient's age to complete this topic MENINGOCOCCAL GROUPS A/C/Y/W VACCINE Aged Out No longer eligible b ased on patient's age to complete this topic PNEUMOCOCCAL VACCINE Aged Out No long er eligible based on patient's age to complete this topic [place] [address] [place] [address] Care Teams Operations Superintendent Relationship Specialty Start Date End Date Trevin Smith MD [address] [place] [address] PCP - General Family Medicine 06/15/17
[2025-01-25 21:22] VITALS: RESP 18; O2SAT 99
--- NOTE | 2025-01-25 21:53 | ED_ITS ---
HPI - General Adult General Chief complaint: Unspecified Stated complaint: pain in throat Time Seen by Provider: 01/25/25 21:08 History of Present Illness HPI narrative: Patient is a 39-year-old male who presents to the ER with right neck pain and swelling that started 2 days ago. He reports His neck has been painful for 2 days. This evening he swallowed and experienced a popping sensation. Patient reports he took an ibuprofen at home which offered him some pain relief. He endorses increased pain with swallowing but reports his pain is not in his throat, but rather in his neck. Patient denies any recent fevers, congestion, ear pain, or mastoid tenderness. He endorses a history of a pneumothorax and lobectomy. Patient is concerned because his father from throat cancer at the age of 58. Related Data Allergies Allergy/AdvReac Type Severity Reaction Status Date / Time amoxicillin Allergy Unknown Rash Verified 01/25/25 22:13 clavulanic acid Allergy Unknown Rash Verified 01/25/25 22:13 diphenhydramine Allergy Unknown Rash Verified 01/25/25 22:13 Review of Systems 2 Review of Systems: All systems reviewed & are unremarkable except as noted in HPI and below PMFSH Past Medical History Medical History Pneumothorax Surgical History Surgical History S/P partial lobectomy of lung Social History Social History Smoking status: Former smoker Second hand tobacco smoke exposure: No Smoking end date: 03/31/11 Alcohol intake: never Exam 2 Narrative: GENERAL: Well appearing, well-nourished, non-toxic, in no acute distress. HEAD: Normocephalic, atraumatic. NECK: Supple. Palpable right anterior neck swelling RESPIRATORY: Airway patent, respirations nonlabored. Clear to auscultation bilaterally, no rales, rhonchi, wheezing. Diminished R lower lobe (previous lobectomy) CARDIOVASCULAR: Regular rate and rhythm without murmurs, rubs, or gallops. Peripheral pulses 2+ and equal bilaterally. ABDOMINAL: Soft, nontender, nondistended, no hepatosplenomegaly. Normoactive BS. MUSCULOSKELETAL: Moves all extremities. Strength/ROM intact without gross deformities. SKIN: Warm, dry, normal color. No rashes. NEURO: A&O X3. Speech clear. Cranial nerves II-XII intact. No ataxic movements. PSYCHIATRIC: Appropriate mood and affect. Normal interaction. Course Vital Signs Vital signs: Vital Signs Temperature 36.9 C 01/25/25 21:00 Pulse Rate 81 01/25/25 21:00 Respiratory Rate 18 01/25/25 21:00 Blood Pressure 160/92 H 01/25/25 21:00 Pulse Oximetry 99 01/25/25 21:00 Oxygen Delivery Room Air 01/25/25 21:00 Temperature 36.4 C 01/26/25 00:13 Pulse Rate 75 01/26/25 00:13 Respiratory Rate 18 01/26/25 00:13 Blood Pressure 125/81 01/26/25 00:13 Pulse Oximetry 100 01/26/25 00:13 Oxygen Delivery Room Air 01/25/25 21:00 Medical Decision Making MDM Narrative Medical decision making narrative: Patient is a 39-year-old male who presents to the ER with right neck pain and swelling that started 2 days ago. He reports His neck has been painful for 2 days. This evening he swallowed and experienced a popping sensation. Patient reports he took an ibuprofen at home which offered him some pain relief. He endorses increased pain with swallowing but reports his pain is not in his throat, but rather in his neck. Patient denies any recent fevers, congestion, ear pain, or mastoid tenderness. He endorses a history of a pneumothorax and lobectomy. Patient is concerned because his father from throat cancer at the age of 58. Labs Ordered: CBC, CMP, lactic acid, TSH, COVID/flu/RSV (pt declined), strep throat (pt declined) Imaging Ordered: CTA neck Medications Ordered: none necessary Results: Patient's CTA neck indicates no acute soft tissue abnormality. Patent carotid and vertebral arteries without evidence of dissection or high-grade stenosis. Diagnosis: Cervical strain Patient Education/Shared MDM: Results of lab work and imaging shared with patient. He will be given a dose of prednisone and Toradol here in the ER to help relieve his pain. Patient strongly advised to maintain hydration status upon discharge and follow-up with his PCP as needed. He will be discharged home with a prescription for muscle relaxants. Patient also advised to take ibuprofen 800 mg p.o. every 8 hours as needed for pain and swelling. Strict return precautions provided. Patient verbalized understanding and is in agreement with plan. Vital signs stable at time of discharge. All questions answered. Differential Diagnosis Differential Diagnosis: carotid dissection, abscess, strep throat, mono Vital Signs Vital Signs: Vital Signs Temperature 36.9 C 01/25/25 21:00 Pulse Rate 81 01/25/25 21:00 Respiratory Rate 18 01/25/25 21:00 Blood Pressure 160/92 H 01/25/25 21:00 Pulse Oximetry 99 01/25/25 21:00 Oxygen Delivery Room Air 01/25/25 21:00 Temperature 36.4 C 01/26/25 00:13 Pulse Rate 75 01/26/25 00:13 Respiratory Rate 18 01/26/25 00:13 Blood Pressure 125/81 01/26/25 00:13 Pulse Oximetry 100 01/26/25 00:13 Oxygen Delivery Room Air 01/25/25 21:00 Lab Data Lab results reviewed: Yes I reviewed the patient's lab results. 01/25/25 22:06 01/25/25 22:06 Labs: Lab Results 01/25/25 Range/Units 22:06 WBC 9.4 (4.5-10.0) K/mm3 RBC 4.97 (4.6-6.20) M/mm3 Hgb 15.7 (14.0-18.0) g/dL Hct 43.6 (42.0-52.0) % MCV 87.7 (80-100) fl MCH 31.6 (26-34) pg MCHC 36.0 (32-36) g/dl RDW 12.0 (11.5-14.5) % Plt Count 231 (150-375) k/mm3 MPV 10.0 (7.4-10.4) fl Immature Gran % (Auto) 0.3 (0-0.5) % Neut % (Auto) 47.8 (45.5-73.1) % Lymph % (Auto) 36.6 (18.3-44.2) % Swift % (Auto) 10.1 H (2.6-8.5) % Eos % (Auto) 4.3 (0-4.4) % Baso % (Auto) 0.9 (0.2-1.2) % Lymph # (Auto) 3.44 H (0.9-3.2) K/mm3 Swift # (Auto) 1.0 H (0.1-0.6) K/mm3 Eos # (Auto) 0.4 H (0-0.3) K/mm3 Baso # (Auto) 0.1 (0.0-0.1) K/mm3 Abs Immat Gran (auto) 0.03 (0.00-0.031) K/mm3 Absolute Neuts (auto) 4.5 (1.3-6.7) K/mm3 Absolute Nucleated RBC 0.000 (0.0-0.012) K/mm3 Nucleated RBC % 0.0 (0.0-0.2) % Sodium 137 (137-145) mmol/L Potassium 4.1 (3.4-5.0) mmol/L Chloride 104 (98-107) mmol/L Carbon Dioxide 24 (22-30) mmol/L Anion Gap 9 (4-12) mmol/L BUN 15 (9-20) mg/dL Creatinine 1.00 (0.7-1.3) mg/dL Estim Creat Clear Calc 97 ml/min Estimated GFR > 60 (59 - ) Glucose 95 (65-110) mg/dL Lactic Acid 1.1 (0.7-2.0) mmol/L Calcium 9.2 (8.4-10.2) mg/dL Total Bilirubin 0.8 (0.2-1.3) mg/dL AST 36 (17-59) U/L ALT 47 (6-50) U/L Alkaline Phosphatase 63 (38-126) U/L Total Protein 7.5 (6.3-8.2) g/dL Albumin 4.4 (3.5-5.1) g/dL TSH (Reflex) 2.280 (0.465-4.68) uIU/mL Monoscreen Negative (Negative) Imaging Data Attestation: I personally reviewed and interpreted this imaging study as follows: Radiologist's impression: Patient's CTA neck indicates no acute soft tissue abnormality. Patent carotid and vertebral arteries without evidence of dissection or high-grade stenosis. Discharge Plan Discharge Clinical Impression: Neck muscle strain Patient Disposition: Home Condition: Stable Instructions: Antibiotic Form, Acute Neck Pain (ED) Additional Instructions: Please return to the ER with any worsening symptoms. Follow-up with primary care provider as needed if your symptoms do not improve. Take all medications as prescribed, including regularly scheduled medications. You may take ibuprofen 800 mg as needed for pain control. Please also take muscle relaxants as needed. Patient Language: Ecuadorean Prescriptions: New ibuprofen 800 mg tablet 800 mg PO TID PRN (Reason: pain) Qty: 30 0RF cyclobenzaprine 10 mg tablet 10 mg PO TID PRN (Reason: muscle spasm) Qty: 30 0RF No Action diphenoxylate-atropine [Lomotil] 2.5-0.025 mg tablet 1 tablet PO TID Qty: 30 0RF Follow-up/Referrals: UNKNOWN,DOCTOR [Primary Care Provider] Stand Alone Forms: Work/School Release IP Time of Disposition: 00:18
--- NOTE | 2025-01-25 22:11 | PC.NURSE ---
Pt reports he does not want to be tested for Covid/Flu/RSV or Strep . EDP notified.
[2025-01-25 22:14] LABS: Hematocrit 43.6 % (42.0-52.0); Hemoglobin 15.7 g/dL (14.0-18.0); Immature Granulocyte Percent A 0.3 % (0-0.5); Lymphocytes Absolute Auto 3.44 K/mm3 (0.9-3.2); Mean Corpuscular HGB Conc 36.0 g/dl (32-36); Mean Corpuscular Hemoglobin 31.6 pg (26-34); Mean Corpuscular Volume 87.7 fl (80-100); Nucleated Red Blood Cells Absolute Auto 0.000 K/mm3 (0.0-0.012); Nucleated Red Blood Cells Perc 0.0 % (0.0-0.2); Platelet Count Result 231 k/mm3 (150-375); Red Blood Count 4.97 M/mm3 (4.6-6.20); White Blood Count 9.4 K/mm3 (4.5-10.0)
[2025-01-25 22:32] LABS: Alanine Aminotransferase 47 U/L (6-50); Albumin Level 4.4 g/dL (3.5-5.1); Alkaline Phosphatase 63 U/L (38-126); Anion Gap 9 mmol/L (4-12); Aspartate Amino Transferase 36 U/L (17-59); Bilirubin,Total 0.8 mg/dL (0.2-1.3); Blood Urea Nitrogen 15 mg/dL (9-20); Calcium 9.2 mg/dL (8.4-10.2); Carbon Dioxide 24 mmol/L (22-30); Chloride 104 mmol/L (98-107); Estimated CRCL calculation 97 ml/min; Estimated Glomerular Filt Rate > 60; Glucose 95 mg/dL (65-110); Potassium 4.1 mmol/L (3.4-5.0); Sodium 137 mmol/L (137-145); Total Protein 7.5 g/dL (6.3-8.2)
[2025-01-25 22:39] LABS: Negative Monotest Control Negative (Negative); Positive Monotest Control Positive (Positive)
--- NOTE | 2025-01-25 23:08 | PC.NURSE ---
Pt refusing ordered swabs
[2025-01-25 23:19] LABS: Thyroid Stimulating Hormone Reflex 2.280 uIU/mL (0.465-4.68)
[2025-01-26 00:13] VITALS: BP 125/81; PULSE 75; RESP 18; TEMP 36.4; O2SAT 100
[2025-01-26] MEDS: KETOROLAC 15 MG/ML VIAL (*BKC) IV PUSH (00:17)
== END 2025-01-26 00:28 | disposition home or self-care (01) ==
PROVIDERS: Emergency Provider Registered Nurse
DX: S16.1XXA Strain of muscle, fascia and tendon at neck level, initial encounter (principal); Z90.2 Acquired absence of lung [part of]; X58.XXXA Exposure to other specified factors, initial encounter
CPT/HCPCS: 36415; 70498; 80053; 83605; 84443; 85025; 86308; 96372; 99284; J1885; J7512; Q9967

== ENCOUNTER 2025-03-04 06:41 | Emergency (ER) | payer OTHER, SELFPAY ==
--- OUTSIDE RECORDS SUMMARY | 2025-03-04 06:44 | XMS_ITS | Clinical Summary ---
Author Organization [facility] Address [facility] [facility] [place] [address] Care Team Providers Care Harm Reduction Worker Name Role Phone Trevin Smith MD Primary Care Provider [phone] [facility],non-owned Affiliates and Associated Physician Practices is amultiple site organization consisting of ambulatory clinics and hospital sitesin [place], [place], [place] and [place]. This disclosure is being madepursuant to the Care Everywhere program and may not contain all information available regarding this patient. Last updated 17.[facility] Allergies Active Allergy Reactions Criticality Noted Date Comments Augmentin Urticaria Medium 06/15/2017 Medications * Be aware that medications may not be up to date on this document. Alwaysverify current medications with the patient. No known medications Social History Tobacco Use Types Packs/Day Years Used Date Smoking Tobacco: Former Cigarettes 0 Q uit: 2012 Smokeless Tobacco: Never Sex [...] DEPRESSION SCREENING 03/31/2024 COVID-19 VACCINE (1 - 2024-2 6 season) 2024 INFLUENZA VACCINE (#1) 2024 ZOSTER [...] patient's age to complete this topic Insurance [place] [address] Care Teams Harm Reduction Worker Relationship Specialty Start Date End Date Trevin Smith MD [address] [place] [address] PCP - General Family Medicine 06/15/17
--- OUTSIDE RECORDS SUMMARY | 2025-03-04 06:44 | XMS_ITS | Clinical Summary ---
Author Organization [facility] Address [address] [place] [phone] Phone Care Team Providers Care Time Study Engineer Name Role Phone Starr Desouza MD Primary [...] Vaccine (#1) 2024 Insurance [employer] Care Teams Time Study Engineer Relationship Specialty Start Date End Date Starr Desouza MD [address] [place] [address] PCP - General Internal Medicine 08/13/18
[2025-03-04 06:48] VITALS: BP 136/94; O2SAT 100
[2025-03-04 06:49] VITALS: BP 136/94; PULSE 76; RESP 18; TEMP 36.4; O2SAT 98; O2SAT 99
[2025-03-04 07:00] VITALS: BP 117/90; PULSE 88; RESP 16; TEMP 36.6; O2SAT 98
[2025-03-04 07:01] VITALS: O2SAT 100
--- NOTE | 2025-03-04 07:04 | ED.GENADULT ---
HPI - General Adult General Chief complaint: Unspecified Stated complaint: swelling in throat Time Seen by Provider: 03/04/25 07:00 Source: patient Mode of arrival: ambulatory Limitations: no limitations History of Present Illness HPI narrative: 39-year-old otherwise healthy here with the complaints of left-sided neck pain which is been on and for past few weeks. Patient states that he woke up this morning with swollen uvula. He complains mild shortness of breath. He does snore Onset (ago): hour(s) (1) Location: mouth Severity: moderate Quality: aching Pain Consistency: constant Relieving factors: none Exacerbating factors: none Related Data Allergies Allergy/AdvReac Type Severity Reaction Status Date / Time amoxicillin Allergy Unknown Rash Verified 01/25/25 22:13 clavulanic acid Allergy Unknown Rash Verified 01/25/25 22:13 diphenhydramine Allergy Unknown Rash Verified 01/25/25 22:13 Review of Systems Review of Systems: All systems reviewed & are unremarkable except as noted in HPI and below Constitutional: Constitutional: Reports no additional constitutional complaints Eyes: Eyes: Reports no additional eye complaints ENT: Reports as per HPI Cardiovascular: Cardiovascular: Reports no additional cardiovascular complaints Respiratory: Respiratory: Reports no additional respiratory complaints Gastrointestinal: Gastrointestinal: Reports no additional gastrointestinal complaints Neurologic: Reports system reviewed and no additional complaints, except as documented Endocrine: Endocrine: Reports no additional endocrine complaints Hematologic/Lymphatic: Hematologic/Lymphatic: Reports no additional hematologic/lymphatic complaints PMFSH Past Medical History Medical History Pneumothorax Surgical History Surgical History S/P partial lobectomy of lung Social History Social History Smoking status: Former smoker Second hand tobacco smoke exposure: No Smoking end date: 03/31/11 Alcohol intake: never Exam Narrative: GENERAL: Well-appearing, well-nourished, and in no acute distress. HEAD: Normocephalic, atraumatic. EYES: PERRLA and EOMI. ENT: Uvula is elongated and mildly swollen NECK: Supple. CHEST: Clear to auscultation. No respiratory distress. HEART: Regular rate and rhythm. No murmur heard. Normal peripheral pulses. EXTREMITIES: Normal range of motion. No edema. SKIN: Warm, dry, no rash. NEURO: No focal deficits. Alert and oriented x3. PSYCH: Normal mood and affect. Course Course Emergency Course: Notified him that the most likely cause of his swollen uvula is from snoring advised him to take at steroids as prescribed, Vital Signs Vital signs: Vital Signs Temperature 36.4 C 03/04/25 06:49 Pulse Rate 76 03/04/25 06:49 Respiratory Rate 18 03/04/25 06:49 Blood Pressure 136/94 H 03/04/25 06:49 Pulse Oximetry 98 03/04/25 06:49 Oxygen Delivery Room Air 03/04/25 06:49 Temperature 36.4 C 03/04/25 06:49 Pulse Rate 76 03/04/25 06:49 Respiratory Rate 18 03/04/25 06:49 Blood Pressure 136/94 H 03/04/25 06:49 Pulse Oximetry 98 03/04/25 06:49 Oxygen Delivery Room Air 03/04/25 06:49 MDM Differential Diagnosis Differential Diagnosis: Strep throat ,tonsillar abscess Discharge Plan Discharge Clinical Impression: Uvulitis, Neck arthralgia Patient Disposition: Home Condition: Stable Instructions: Uvulitis (ED) Patient Language: Vietnamese Prescriptions: New prednisone 20 mg tablet 20 mg PO BID Qty: 10 0RF No Action ibuprofen 800 mg tablet 800 mg PO TID PRN (Reason: pain) Qty: 30 0RF cyclobenzaprine 10 mg tablet 10 mg PO TID PRN (Reason: muscle spasm) Qty: 30 0RF diphenoxylate-atropine [Lomotil] 2.5-0.025 mg tablet 1 tablet PO TID Qty: 30 0RF Follow-up/Referrals: Chase Duncan MD [Physician, Family Practice] UNKNOWN,DOCTOR [Non-Staff] Time of Disposition: 07:06
--- OUTSIDE RECORDS SUMMARY | 2025-03-04 07:13 | XMS_ITS | Clinical Summary ---
Author Organization [facility] Address [address] [place] [id number] Phone Care Team Providers Care Legal Administrative Secretary Name Role Phone Starr Desouza MD Primary [...] Vaccine (#1) 2024 Insurance [employer] Care Teams Legal Administrative Secretary Relationship Specialty Start Date End Date Starr Desouza MD [address] [place] [address] PCP - General Internal Medicine 08/13/18
--- OUTSIDE RECORDS SUMMARY | 2025-03-04 07:13 | XMS_ITS | Clinical Summary ---
Author Organization [facility] [employer] Address [facility] [facility] [place] [address] Care Team Providers Care Client Delivery Manager Name Role Phone Trevin Smith MD Primary Care Provider [phone] Source Comments [facility] [employer],non-owned Affiliates and Associated Physician Practices is amultiple site organization consisting of ambulatory clinics and hospital sitesin [place], [place], [place]. This disclosure is being madepursuant to the Care Everywhere program and may not contain all information available regarding this patient. Last updated 17.[facility] Allergies Active Allergy Reactions Criticality Noted Date [...] patient's age to complete this topic [place] [address] [place] [address] Care Teams Client Delivery Manager Relationship Specialty Start Date End Date Trevin Smith MD [address] [place] [address] PCP - General Family Medicine 06/15/17
== END 2025-03-04 07:20 | disposition home or self-care (01) ==
LOC: ANHED 07:11
PROVIDERS: Emergency Provider Family Medicine
DX: K12.2 Cellulitis and abscess of mouth (principal); M54.2 Cervicalgia; Z90.2 Acquired absence of lung [part of]; Z87.891 Personal history of nicotine dependence
CPT/HCPCS: 99283